=== PATIENT | male | born 1985 | race Caucasian/White ===

== ENCOUNTER → 2022-06-06 15:07 | Outpatient (CLI) | payer OTHER, SELFPAY ==
--- NOTE | ~2022-06-06 | US_ITS ---
EXAMINATION: US abdomen complete DATE: 06/06/2022 15:43 INDICATION: DISORDER OF BILIRUBIN METABOLISM TECHNIQUE: Multiple grayscale and Doppler ultrasound images of the abdomen were obtained. COMPARISON: None available. FINDINGS: The visualized portions of the pancreas are normal. The liver is normal with normal echogen icity and echotexture. No surface nodularity. Normal hepatopetal flow in the main portal vein. The ga llbladder is normal with no abnormal wall thickening, pericholecystic fluid or stones. The common edgar e duct measures 5 mm. There was no sonographic Jasso sign. The visualized portions of the aorta and inferior vena cava are normal. The right kidney measures 7.5 x 4.9 x 5.2. The left kidney measures 10.2 x 5.3 x 4.7. The kidneys dem onstrate normal parenchymal echogenicity. There is no hydronephrosis. The spleen is normal in appeara nce and measures 14.4 cm. IMPRESSION: Splenomegaly. Reviewed, dictated and finalized at location K. IMPRESSION: Splenomegaly.
== END ==
PROVIDERS: PCP Emergency Medicine; Visit Provider Emergency Medicine
DX: E80.7 Disorder of bilirubin metabolism, unspecified (principal); R16.1 Splenomegaly, not elsewhere classified
CPT/HCPCS: 76700